=== PATIENT | female | born 1960 | race Caucasian/White ===

== ENCOUNTER 2017-01-18 16:24 | Day surgery (SDC) | payer OTHER ==
[~2017-01-18] VITALS: Ht 170.2 cm; Wt 110.5 kg
--- NOTE | 2017-01-18 19:50 | DIAGNOSTIC IMAGING REPORT ---
PROCEDURE: ABDOMEN/PELVIS WITH CONTRAST CLINICAL INDICATION: ABDOMINAL PAIN TECHNIQUE: 125 ml of Isovue 300 were injected intravenously and axial images were obtained of the abdomen and pelvis with sagittal and coronal reformations. COMPARISON: None. FINDINGS: ABDOMEN: Moderate posterior bibasilar and lingular atelectasis. Moderate diffuse hepatic hypodensity. Splenule caudal to the spleen. Surgical tacks of ventral abdominal hernia repair with mesh. Normal sized heart. No hiatal hernia. The gallbladder, adrenal glands, kidneys, pancreas and spleen are normal. The abdominal aorta is normal in its course and caliber. Trace atherosclerosis. There are no suspicious calcifications, retroperitoneal adenopathy or masses. The stomach, upper bowel loops, and mesentery are normal. PELVIS: 18 mm, fluid-filled appendix with mild periappendiceal inflammation and trace fluid. There is a calcified appendicolith at the orifice and another within the lumen. No evidence of perforation, drainable fluid collection, or significant free pelvic fluid. The pelvic small bowel loops are normal. Normal amount of stool in the colon and rectum. The uterus, ovaries, urinary bladder, and pelvic vessels are normal. No adenopathy, free fluid, or pelvic mass. Severe degenerative disc height loss at L4-5. Otherwise normal osseous structures. IMPRESSION: 1. Findings of acute, uncomplicated appendicitis. 2. Surgical changes of abdominal wall ventral hernia repair with mesh. 3. Moderate hepatic steatosis. 4. Discussed with Bridger in the emergency room. All CT scans at this facility use dose modulation, iterative reconstruction, and/or weight-based dosing when appropriate to reduce radiation dose to as low as reasonably achievable.
--- NOTE | 2017-01-18 19:50 | ED ORDER SUMMARY ---
..... Patient: MINNIE ROBERTS OrderSheet [facility] VisitID: [id number] [address] [place] [address] 56y, F Registration Date/Time: 01/18/2017 ORDER SHEET Weight: 109.3 kg (stated) Allergies: Morphine and Related GENERAL ORDERS: CBC w Diff Urgent (17:36 01/18/2017 EKoroleva P.A.-C) (Ack 17:39 KHoerner) (18:17 SBalde R.N.) CMP Urgent (17:36 01/18/2017 EKoroleva P.A.-C) (Ack 17:39 KHoerner) (18:17 SBalde R.N.) Lipase Urgent (17:36 01/18/2017 EKoroleva P.A.-C) (Ack 17:39 KHoerner) (18:17 SBalde R.N.) UA-Culture if indicated Urgent (17:36 01/18/2017 EKoroleva P.A.-C) (Ack 17:39 KHoerner) (19:07 SBalde R.N.) CT Abd/Pel w Cont (No) (N/A) Urgent (18:39 01/18/2017 EKoroleva P.A.-C) (Ack 18:40 KHoerner) (19:07 SBalde R.N.) MEDICATION ORDERS: IV FLUIDS: IV Saline Lock (17:36 01/18/2017 EKoroleva P.A.-C) (18:17 SBalde R.N.) Dilaudid IV 1 mg (NOW) (17:57 01/18/2017 EKoroleva P.A.-C) (18:17 SBalde R.N.) Dilaudid IV 1 mg (HIGH ALERT MEDICATION, NOW) (19:48 01/18/2017 EKoroleva P.A.-C) (Ack 19:48 RCollier R.N.) (19:53 RCollier R.N.) IV Lactated Ringers : initial bolus 12ml, then 125 mL/hr (NOW); Nir (19:59 01/18/2017 EKoroleva P.A.-C) (Ack 20:08 RCollier R.N.) (20:16 RCollier R.N.) Reglan IV 10 mg (NOW) (19:59 01/18/2017 EKoroleva P.A.-C) (20:07 RCollier R.N.) Famotidine IV 20 mg/50mL (NOW) (19:59 01/18/2017 EKoroleva P.A.-C) (20:08 RCollier R.N.) Cefotetan IV 2 gm (NOW) (19:59 01/18/2017 EKoroleva P.A.-C) (Ack 20:08 RCollier R.N.) (20:29 RCollier R.N.) Zofran IV 4 mg (NOW) (20:08 01/18/2017 RCollier R.N. written order Douglas SILVA) (20:10 RCollier R.N.) Acute Appendicitis orders ORDER SHEET NOTES: [Electronically signed by Ivonne Velasquez R.N. (21:10 01/18/2017)] [Electronically locked/signed by Ivonne Velasquez R.N. (21:10 01/18/2017)]
--- NOTE | 2017-01-18 19:50 | ED ORDER SUMMARY ---
..... Patient: MINNIE ROBERTS OrderSheet [facility] VisitID: [id number] [address] [place] [address] 56y, F Registration Date/Time: 01/18/2017 ORDER SHEET Weight: 109.3 kg (stated) Allergies: Morphine and Related GENERAL ORDERS: CBC w Diff Urgent (17:36 01/18/2017 EKoroleva P.A.-C) (Ack 17:39 KHoerner) (18:17 SBalde R.N.) CMP Urgent (17:36 01/18/2017 EKoroleva P.A.-C) (Ack 17:39 KHoerner) (18:17 SBalde R.N.) Lipase Urgent (17:36 01/18/2017 EKoroleva P.A.-C) (Ack 17:39 KHoerner) (18:17 SBalde R.N.) UA-Culture if indicated Urgent (17:36 01/18/2017 EKoroleva P.A.-C) (Ack 17:39 KHoerner) (19:07 SBalde R.N.) CT Abd/Pel w Cont (No) (N/A) Urgent (18:39 01/18/2017 EKoroleva P.A.-C) (Ack 18:40 KHoerner) (19:07 SBalde R.N.) MEDICATION ORDERS: IV FLUIDS: IV Saline Lock (17:36 01/18/2017 EKoroleva P.A.-C) (18:17 SBalde R.N.) Dilaudid IV 1 mg (NOW) (17:57 01/18/2017 EKoroleva P.A.-C) (18:17 SBalde R.N.) Dilaudid IV 1 mg (HIGH ALERT MEDICATION, NOW) (19:48 01/18/2017 EKoroleva P.A.-C) (Ack 19:48 RCollier R.N.) (19:53 RCollier R.N.) IV Lactated Ringers : initial bolus 12ml, then 125 mL/hr (NOW); Nir (19:59 01/18/2017 EKoroleva P.A.-C) (Ack 20:08 RCollier R.N.) (20:16 RCollier R.N.) Reglan IV 10 mg (NOW) (19:59 01/18/2017 EKoroleva P.A.-C) (20:07 RCollier R.N.) Famotidine IV 20 mg/50mL (NOW) (19:59 01/18/2017 EKoroleva P.A.-C) (20:08 RCollier R.N.) Cefotetan IV 2 gm (NOW) (19:59 01/18/2017 EKoroleva P.A.-C) (Ack 20:08 RCollier R.N.) (20:29 RCollier R.N.) Zofran IV 4 mg (NOW) (20:08 01/18/2017 RCollier R.N. written order Douglas SILVA) (20:10 RCollier R.N.) Acute Appendicitis orders ORDER SHEET NOTES: [Electronically signed by Ivonne Velasquez R.N. (21:10 01/18/2017)] [Electronically locked/signed by Ivonne Velasquez R.N. (21:10 01/18/2017)]
--- NOTE | 2017-01-18 19:50 | ED NURSING NOTES ---
Clinical Report - [facility] [address] [place] [address] 01/18/2017 16:25 Patient: MINNIE ROBERTS TRIAGE Triage time 17:Jan 18 2017. Acuity: LEVEL 3. Chief Complaint: ABDOMINAL PAIN. Alert. No acute distress. --17:30 Trang Walker R.N. 17:22 01/18/17. BP: 132/85. HR: 93. RR: 18. O2 saturation: 98%. Temp: 97.7 F. Pain level now 02/26. --17:30 Trang Walker R.N. Weight: 109.3 kg stated. Height/Length: 67 inches Per Patient. BMI: 37.8. --17:21 Trang Walker R.N. Medications Zoloft Oral 54mg, daily. --17:26 Trang Walker R.N. Gabapentin Oral 300mg, at bedtime. Nortriptyline HCl Oral (2 tabs). Tradjenta Oral (Tablet 5 mg) 1 tablet, daily. --17:26 Trang Walker R.N. Flexeril 10mg, as needed. --17:27 Trang Walker R.N. Glucosamine Complex Oral 4mg. --19:27 Trang Walker R.N. Pioglitazone HCl Oral 30 mg. --19:28 Trang Walker R.N. Hydrochlorothiazide Oral 25 mg, daily. --19:29 Trang Walker R.N. Lisinopril Oral 20 mg, 2x a day. --19:29 Trang Walker R.N. Lantus Subcutaneous 30 units, every PM. --19:31 Trang Walker R.N. Omeprazole Oral 40 mg. --19:31 Trang Walker R.N. Simvastatin Oral 20 mg. --19:32 Trang Walker R.N. The following entry was struck by Trang Walker R.N., 19:31 (01/18/17) Reason - other. <<STRICKEN ENTRY-- Insulin 30 units , at bedtime (Lantus). --17:26 Trang Walker R.N. --END STRIKE>> The following entry was struck by Trang Walker R.N., 19:31 (01/18/17) Reason - other. <<STRICKEN ENTRY-- CHOLESTEROL MED. --17:26 Trang Walker R.N. --END STRIKE>> The following entry was struck by Trang Walker R.N., 19:29 (01/18/17) Reason - other. <<STRICKEN ENTRY-- Blood Pressure Pill. --17:26 Trang Walker R.N. --END STRIKE>> The following entry was struck and corrected by Trang Walker R.N., 19:27 (01/18/17) Reason for correction - other(correction). <<STRICKEN ENTRY-- Flexeril, as needed. --17:27 Trang Walker R.N. --END STRIKE>> The following entry was struck and corrected by Trang Walker R.N., 19:27 (01/18/17) Reason for correction - other(correction). <<STRICKEN ENTRY-- Zoloft Oral. --17:26 Trang Walker R.N. --END STRIKE>>. Medication/allergy information source: the patient. --17:30 Trang Walker R.N. Allergies Morphine and Related. (Facial Itching) --17:26 Trang Walker R.N. History Arrived by private vehicle. Historian: patient. Accompanied by family. Primary physician ([facility]). ( RLQ pain since yesterday, sudden onset, was sitting around the house, at rest. Last normal BM was yesterday. 7/10 pain. No OTC meds.). This started yesterday. 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 PAST MEDICAL HX: Immunizations: up-to-date and has received pneumonia vaccine; seasonal influenza. The patient is post-menopausal. SOCIAL HX: Former smoker. No alcohol use or drug use. No recent travel. No known contact with a sick individual. FALL RISK ASSESSMENT: Fall risk assessment completed. No fall risk identified. NUTRITIONAL RISK ASSESSMENT: The nutritional risk assessment revealed no deficiencies. FUNCTIONAL ASSESSMENT: Functional assessment: no impairments noted. LEARNING NEEDS ASSESSMENT: The learning needs assessment revealed no barriers. SKIN INTEGRITY ASSESSMENT: Skin integrity risk assessment completed. No skin integrity risk identified. --17:30 Trang Walker R.N. PROBLEMS: Contusion. Sprain. Fall. Fibromyalgia. Costochondritis. UTI - Urinary Tract Infection. Diabetes Mellitus. Lung Disease. LNMP - Last Normal Menstrual Period. Immunizations. --17:29 Trang Walker R.N. ADDITIONAL SURGERIES: . Inguinal Hernia Repair. Umbilical Hernia Repair. --17:29 Trang Walker R.N. Interventions ID band on patient. To room. --17:30 Trang Walker R.N. NURSING PROGRESS NOTES Patient ready for evaluation- ED physician notified. --17:30 Trang Walker R.N. 18:17 01/18/2017 Site #1 started via IV in the right antecubital space with an 20g angiocath; one attempt. Blood drawn: rainbow set. Labeled in the presence of the patient and sent to the lab. Saline lock flushed with 10 mL saline. --18:17 Trang Walker R.N. 18:17 01/18/2017 Dilaudid (HYDROmorphone HCl PF) IVP 1 mg given over 2 minute(s) via site #1. Sedative warning given to the patient. IV patency established. IV site checked: no pain, redness, or swelling. IV flushed thoroughly pre- and post-medication administration. IVP given by RN. --18:17 Trang Walker R.N. Patient transported to [place] by stretcher with tech. --19:06 Trang Walker R.N. Care transferred and report received. --19:10 Ivonne Velasquez R.N. Patient returned from [place] by stretcher with tech. --19:19 Trang Walker R.N. 19:25 01/18/17. BP: 130/68. HR: 100. RR: 18. O2 saturation: 96%. Pain level now 10/27. --19:25 Trang Walker R.N. The patient reports no complaints and she has had no adverse reaction. Overall patient status is improved- she states feels better. --19:25 Trang Walker R.N. ( Called [facility] for med list, closed. Pt does use [facility], but has been months. Sister called family finally and was able to talk to family for meds.). --19:26 Trang Walker R.N. Care transferred and report given (Ivonne, VALENTIN). --19:32 Trang Walker R.N. Patient waiting for CT results. --19:33 Trang Walker R.N. GI / : The patient reports abdominal pain located in the RLQ is still present and currently moderate in severity (12/27). --19:48 Ivonne Velasquez R.N. 19:53 01/18/2017 Dilaudid (HYDROmorphone HCl PF) IVP 1 mg given over 30 second(s) via site #1. Allergies verified, confirmed 5 rights and sedative warning given to the patient. IV patency established. IV site checked: no pain, redness, or swelling. IV flushed thoroughly pre- and post-medication administration. IVP given by RN. --19:53 Ivonne Velasquez R.N. 20:04 01/18/2017 Zofran (Ondansetron HCl) IVP 4 mg given over 1 minute(s) via site #1. Allergies verified and confirmed 5 rights. IV patency established. IV site checked: no pain, redness, or swelling. IV flushed thoroughly pre- and post-medication administration. IVP given by RN. --20:10 Ivonne Velasquez R.N. 20:05 01/18/2017 Reglan (Metoclopramide HCl) IVP 10 mg given over 2 minute(s) via site #1. Allergies verified and confirmed 5 rights. IV patency established. IV site checked: no pain, redness, or swelling. IV flushed thoroughly pre- and post-medication administration. IVP given by RN. --20:07 Ivonne Velasquez R.N. 20:08 01/18/2017 Started 20 mg of Famotidine IVPB in bag #1 50 mL; at 150 mL/hr over 20 minute(s) via site #1 via IV pump. Allergies verified and confirmed 5 rights. IV patency established. IV site checked: no pain, redness, or swelling. IV flushed thoroughly pre- and post-medication administration. --20:08 Ivonne Velasquez R.N. 20:16 01/18/2017 Started bag #1 1000 mL IV Fluids IV LACTATED RINGERS; at 125 mL/hr via site #1 via IV pump. Allergies verified and confirmed 5 rights. IV patency established. IV site checked: no pain, redness, or swelling. IV flushed thoroughly pre- and post-medication administration. --20:16 Ivonne Velasquez R.N. 20:27 01/18/2017 Famotidine IVPB Discontinued: bag #1 completed. Total amount infused: 50 mL. IV patency established. IV site checked: no pain, redness, or swelling. IV flushed thoroughly. --20:28 Ivonne Velasquez R.N. 20:28 01/18/2017 Started 1 gm of CEFOTETAN IVPB in bag #1 50 mL; at 180 mL/hr over 20 minute(s) via site #1 via IV pump. Allergies verified and confirmed 5 rights. IV patency established. IV site checked: no pain, redness, or swelling. IV flushed thoroughly pre- and post-medication administration (due to availability of medication, only 1gm to infuse at a time.). --20:29 Ivonne Velasquez R.N. 20:47 01/18/2017 CEFOTETAN IVPB Discontinued: bag #1 completed. Total amount infused: 50 mL. IV patency established. IV site checked: no pain, redness, or swelling. IV flushed thoroughly. --20:47 Ivonne Velasquez R.N. 20:48 01/18/2017 Started 1 gm of CEFOTETAN IVPB in bag #2 50 mL; at 180 mL/hr over 20 minute(s) via site #1 via IV pump. Allergies verified and confirmed 5 rights. IV patency established. IV site checked: no pain, redness, or swelling. IV flushed thoroughly pre- and post-medication administration (bag #2 of total infusion (2gms ordered)). --20:48 Ivonne Velasquez R.N. 20:46. Point of care testing: performed by nurse. Glucose: 154. --20:49 Ivonne Velasquez R.N. 20:49 01/18/17. BP: 98/44. HR: 96. RR: 16. O2 saturation: 96%. Pardo-Bishop pain scale: 4/10. --20:49 Ivonne Velasquez R.N. The patient is calm and resting quietly. ( lights dimmed for pt comfort.). --20:49 Ivonne Velasquez R.N. DISPOSITION / DISCHARGE 21:01/18/17. BP: unable to obtain due to patient not present. HR: unable to obtain due to patient not present. RR: unable to obtain due to patient not present. O2 saturation: unable to obtain due to patient not present. Temp: unable to obtain due to patient not present. Pain level now unable to obtain due to patient not present. --21:08 Ivonne Velasquez R.N. Admitted to Acute Care via Surgery. Transported via stretcher by nurse with IV. ( Surgical team took pt prior to discharge vitals). Patient's personal items include: shirt, pants, undergarments, socks, shoes and purse; items were placed in belongings bag and transported with the patient. Collection of belongings was witnessed by 1 nurse. --21:08 Ivonne Velasquez R.N. 21:01/18/2017 Site #[address] upon admission; patent. --21:08 Ivonne Velasquez R.N. 21:01/18/2017 CEFOTETAN IVPB Discontinued: bag #2 completed. Total amount infused: 50 mL. IV patency established. IV site checked: no pain, redness, or swelling. IV flushed thoroughly. --21:08 Ivonne Velasquez R.N. 21:01/18/2017 IV Fluids IV LACTATED RINGERS Continued: at the rate of 125 mL/hr. 900 mL remaining bag #1. IV patency established. IV site checked: no pain, redness, or swelling. IV flushed thoroughly. --21:09 Ivonne Velasquez R.N. Locked/Released at 01/18/2017 21:10 by Ivonne Velasquez R.N.
--- NOTE | 2017-01-18 19:50 | ED CLINICAL REPORT ---
Clinical Report - Physicians/Mid Levels [facility] [address] [place] [address] 01/18/2017 16:25 Patient: MINNIE ROBERTS Time Seen: 17:43 Kwame 2016. Arrived- By private vehicle. HISTORY OF PRESENT ILLNESS Chief Complaint: ABDOMINAL PAIN. It is described as located in the right lower quadrant. This started yesterday and is still present. (patient with right lower quadrant pain since yesterday morning, was associated nausea, decreased appetite. Patient denies any diarrhea or loose stools. Took a stool softener, she thought constipation may be an issue. Denies sick contacts. He denies any shortness of breath. Denies any recent antibiotic use.). REVIEW OF SYSTEMS No constipation, black stools, chest pain or difficulty breathing. All systems otherwise negative, except as recorded above. PAST HISTORY Problems: Hypertension. Contusion. Sprain. Fall. Fibromyalgia. Costochondritis. UTI - Urinary Tract Infection. Diabetes Mellitus. Lung Disease. LNMP - Last Normal Menstrual Period. Immunizations. Additional Surgeries: . Inguinal Hernia Repair. Umbilical Hernia Repair. Medications: Simvastatin Oral 20 mg. Omeprazole Oral 40 mg. Lantus Subcutaneous 30 units, every PM. Lisinopril Oral 20 mg, 2x a day. Hydrochlorothiazide Oral 25 mg, daily. Pioglitazone HCl Oral 30 mg. Glucosamine Complex Oral 4mg. Flexeril 10mg, as needed. Gabapentin Oral 300mg, at bedtime. Nortriptyline HCl Oral (2 tabs). Tradjenta Oral (Tablet 5 mg) 1 tablet, daily. Zoloft Oral 54mg, daily. Allergies: Morphine and Related. (Facial Itching). SOCIAL HISTORY Former smoker. No alcohol use or drug use. ADDITIONAL NOTES The nursing notes have been reviewed. PHYSICAL EXAM Vital Signs: 01/18/2017 17:22 BP: 132/85. HR: 93. RR: 18. O2 saturation: 98%. Temp: 97.7 F. Appearance: Alert. No acute distress. ENT: Ears normal. Neck: Normal inspection. CVS: Normal heart rate and rhythm. Heart sounds normal. Respiratory: No respiratory distress. Breath sounds normal. Abdomen: Tenderness in the right lower quadrant. Guarding present. Rebound tenderness. Neuro: Oriented X 3. LABS, X-RAYS, AND EKG Abdominal CT: IMPRESSION: 1. Findings of acute, uncomplicated appendicitis. 2. Surgical changes of abdominal wall ventral hernia repair with mesh. 3. Moderate hepatic steatosis. 4. Discussed with Bridger in the emergency room. All CT scans at this facility use dose modulation, iterative reconstruction, and/or weight-based dosing when appropriate to reduce radiation dose to as low as reasonably achievable. Electronically Final signed by:Sadia Roy MD 01/18/2017 7:49:15 PM. Laboratory Tests: UA-Culture if indicated: (GIULIANA: 01/18/2017 18:40) ( MsgRcvd 01/18/2017 18:54) Final results Test Result Flag Units (Reference) URINE COLOR YELLOW URINE APPEARANCE CLEAR URINE GLUCOSE 2+ (NEGATIVE) URINE BILIRUBIN NEGATIVE (NEGATIVE) URINE KETONE NEGATIVE (NEGATIVE) URINE SPECIFIC GRAVITY 1.015 (1.010-1.030) URINE PH 6.0 (5.0-8.0) URINE PROTEIN NEGATIVE (NEGATIVE) URINE UROBILINOGEN 0.2 EU/dL (0.2-1.0) URINE NITRITE NEGATIVE (NEGATIVE) URINE BLOOD NEGATIVE (NEGATIVE) URINE LEUK ESTERASE NEGATIVE (NEGATIVE) URINE RBC NONE SEEN rbc/hpf (0-1) URINE WBC 1-3 wbc/hpf (0-1) URINE EPITHELIAL CELLS 1-3 EPI/hpf (0-5) URINE BACTERIA TRACE (<1+) (NONE SEEN) URINE COMMENT CULT NOT INDICATED URINE CULTURES ARE SET-UP BASED ON THE FOLLOWING CRITERIA:POSITIVE NITRITEPOSITIVE LEUKOCYTE ESTERASEGREATER THAN 10 WHITE BLOOD CELLSMODERATE (2+) OR GREATER BACTERIA CBC w Diff: (GIULIANA: 01/18/2017 18:20) ( MsgRcvd 01/18/2017 18:31) Final results Test Result Flag Units (Reference) WHITE BLOOD COUNT 16.0 H K/uL (4.5-11.5) RED BLOOD COUNT 4.72 M/uL (4.00-5.20) HEMOGLOBIN 14.1 gm/dL (12.0-16.0) HEMATOCRIT 41.4 % (36.0-46.0) MEAN CELL VOLUME 88 fL (80-100) MEAN CORPUSCULAR HGB 30 pg (26-34) MEAN CORPUSCULAR HGB CONC 34 g/dL (31-37) RED CELL DISTRIBUTION WIDTH 13.8 % (11.6-14.8) PLATELET COUNT 311 K/uL (150-400) NEUTROPHIL % 62.3 % (50-75) LYMPH % 32.0 % (25-40) MONO % 3.6 % (3-14) EOSINOPHIL % 1.3 % (0-4) BASOPHIL % 0.8 % (0-2) CMP: (GIULIANA: 01/18/2017 18:20) ( MsgRcvd 01/18/2017 18:52) Final results Test Result Flag Units (Reference) GLUCOSE 181 H mg/dL (70-110) BUN 9 mg/dL (7-18) CREATININE 0.7 mg/dL (0.6-1.3) Estimated GFR >60 mL/min Estimated GFR- >60 mL/min Note: Persistent reduction over 3 months in eGFR<60 mL/min/1.73 m2 defines CKD. Patients with eGFR values>=60 mL/min/1.73 m2 may also have CKD if evidence ofpersistent proteinuria. Additional information may be foundat www.kidney.org. SODIUM 140 mmol/L (136-145) POTASSIUM 3.6 mmol/L (3.5-5.1) CHLORIDE 99 mmol/L (98-107) CARBON DIOXIDE 32 mmol/L (21-32) CALCIUM 9.4 mg/dL (8.5-10.1) TOTAL PROTEIN 7.6 g/dL (6.4-8.2) ALBUMIN 4.0 g/dL (3.3-5.0) BILIRUBIN, TOTAL 0.4 mg/dL (0.0-1.0) ALKALINE PHOSPHATASE 84 U/L (46-116) AST (SGOT) 21 U/L (15-37) ALT (SGPT) 37 U/L (12-78) LIPASE 92 U/L (73-393) . PROGRESS AND PROCEDURES Course of Care: Patient with right-sided abdominal pain, in the setting of diabetes, insulin-dependent, with leukocytosis. CT was ordered with contrast. Patient with signs of acute appendicitis, uncomplicated. Case discussed with surgeon, Dr. Michael, who will see the patient in emergency department, likely for OR time within the next hour. Requests antibiotics. Case discussed with Dr. Miller, hospitalist, who accepts for consultation. Secondary to requirements per registration patient being placed in a operating bed, unable to complete any transition orders, will admission package place. 01/18/2017 20:49 BP: 98/44. HR: 96. RR: 16. O2 saturation: 96%. Pardo-Bishop pain scale: 4/10. 01/18/2017 19:25 BP: 130/68. HR: 100. RR: 18. O2 saturation: 96%. Symptoms better. Patient/family counseled. Disposition: Admitted via Surgery. CLINICAL IMPRESSION Chronic type 2 diabetes. No hyperglycemia. Acute Appendicitis. (Electronically signed by Cat Sparks P.A.-C 01/18/2017 21:17)
--- NOTE | 2017-01-18 21:18 | ED DISCHARGE INSTRUCTIONS ---
Patient: MINNIE ROBERTS General Instructions [facility] VisitID: [id number] [address] [place] [address] 56y, F Registration Date/Time: 01/18/2017 Chronic type 2 diabetes. No hyperglycemia. Acute Appendicitis. (Electronically signed by Cat Sparks P.A.-C 01/18/2017 21:17)
--- NOTE | 2017-01-18 21:18 | ED MAR SUMMARY ---
..... Medication Administration Record [facility] [address] [place] [address] Patient: MINNIE ROBERTS Visit ID: [id number] 56y, F Weight: 109.3 kg Height/Length: 67 in BMI: 37.8 ALLERGIES: Morphine and Related Given 18:17 01/18/2017 Trang Walker R.N. Medication Administered: DILAUDID [IVP] (HYDROMORPHONE HCL PF), Dose: 1 mg IVP over 2 minute(s), Site: #1 right AC. Medication Ordered: Dilaudid IV 1 mg (NOW). Given 19:53 01/18/2017 Ivonne Velasquez R.N. Medication Administered: DILAUDID [IVP] (HYDROMORPHONE HCL PF), Dose: 1 mg IVP over 30 second(s), Site: #1 right AC. Medication Ordered: Dilaudid IV 1 mg (HIGH ALERT MEDICATION, NOW). Given 20:04 01/18/2017 Ivonne Velasquez R.N. Medication Administered: ZOFRAN [IVP] (ONDANSETRON HCL), Dose: 4 mg IVP over 1 minute(s), Site: #1 right AC. Medication Ordered: Zofran IV 4 mg (NOW). Given 20:05 01/18/2017 Ivonne Velasquez R.N. Medication Administered: REGLAN [IVP] (METOCLOPRAMIDE HCL), Dose: 10 mg IVP over 2 minute(s), Site: #1 right AC. Medication Ordered: Reglan IV 10 mg (NOW). Start 20:08 01/18/2017 Ivonne Velasquez R.N., Stop 20:27 01/18/2017 Ivonne Velasquez R.N. Medication Administered: FAMOTIDINE [IVPB], Dose: 20 mg IVPB over 20 minute(s), Rate: 150 mL/hr, Dispensed: 50 mL bag, Site: #1 right AC. Medication Ordered: Famotidine IV 20 mg/50mL (NOW). Start 20:16 01/18/2017 Ivonne Velasquez R.N., Continued Upon Disposition 21:08 01/18/2017 Ivonne Velasquez R.N. Medication Administered: IV LACTATED RINGERS, Dose: IV Fluids, Rate: 125 mL/hr, Dispensed: 1000 mL bag, Site: #1 right AC. Medication Ordered: IV Lactated Ringers : initial bolus 12ml, then 125 mL/hr (NOW); Nir. Start 20:28 01/18/2017 Ivonne Velasquez R.N., Stop 20:47 01/18/2017 Ivonne Velasquez R.N. Medication Administered: CEFOTETAN [IVPB], Dose: 1 gm IVPB over 20 minute(s), Rate: 180 mL/hr, Dispensed: 50 mL bag, Site: #1 right AC. Medication Ordered: Cefotetan IV 2 gm (NOW). Start 20:48 01/18/2017 Ivonne Velasquez R.N., Stop 21:08 01/18/2017 Ivonne Velasquez R.N. Medication Administered: CEFOTETAN [IVPB], Dose: 1 gm IVPB over 20 minute(s), Rate: 180 mL/hr, Dispensed: 50 mL bag, Site: #1 right AC. Medication Ordered: Cefotetan IV 2 gm (NOW).
--- NOTE | 2017-01-18 21:18 | ED DISCHARGE INSTRUCTIONS ---
Patient: MINNIE ROBERTS General Instructions [facility] VisitID: [id number] [address] [place] [address] 56y, F Registration Date/Time: 01/18/2017 Chronic type 2 diabetes. No hyperglycemia. Acute Appendicitis. (Electronically signed by Cat Sparks P.A.-C 01/18/2017 21:17)
--- NOTE | 2017-01-18 21:18 | ED MED RECONCILIATION SUMMARY ---
Patient: MINNIE ROBERTS Medication Reconciliation Report [facility] VisitID: [id number] [address] [place] [address] 56y, F Registration Date/Time: 01/18/2017 Weight: 109.3 kg Height/Length: 67 in. BMI: 37.8 ALLERGIES: Morphine and Related The patient's Home Medications are listed below: THE FOLLOWING MEDICATIONS NEED TO BE RECONCILED: Flexeril 10mg Gabapentin Oral 300mg, at bedtime Glucosamine Complex Oral 4mg Hydrochlorothiazide Oral 25 mg, daily Lantus Subcutaneous 30 units, every PM Lisinopril Oral 20 mg, 2x a day Nortriptyline HCl Oral, 2 tabs Omeprazole Oral 40 mg Pioglitazone HCl Oral 30 mg Simvastatin Oral 20 mg Tradjenta Oral (5 mg) 1 tablet, daily Zoloft Oral 54mg, daily The source(s) of the original Home Medication information: patient The following Medications were given to the patient in the Emergency Department: Dilaudid [IVP] IVP 1 mg, administered: 01/18/2017 6:17:00 PM Dilaudid [IVP] IVP 1 mg, administered: 01/18/2017 7:53:00 PM Reglan [IVP] IVP 10 mg, administered: 01/18/2017 8:05:00 PM Famotidine [IVPB] IVPB bolus 0, then 20 mg 150 mL/hr, administered: 01/18/2017 8:08:00 PM Zofran [IVP] IVP 4 mg, administered: 01/18/2017 8:04:00 PM IV LACTATED RINGERS IV Fluids bolus 0, then 125 mL/hr, administered: 01/18/2017 8:16:00 PM CEFOTETAN [IVPB] IVPB bolus 0, then 1 gm 180 mL/hr, administered: 01/18/2017 8:28:00 PM CEFOTETAN [IVPB] IVPB bolus 0, then 1 gm 180 mL/hr, administered: 01/18/2017 8:48:00 PM The following Medications were prescribed to the patient: None.
--- NOTE | 2017-01-18 21:18 | ED MAR SUMMARY ---
..... Medication Administration Record [facility] [address] [place] [address] Patient: MINNIE ROBERTS Visit ID: [id number] 56y, F Weight: 109.3 kg Height/Length: 67 in BMI: 37.8 ALLERGIES: Morphine and Related Given 18:17 01/18/2017 Trang Walker R.N. Medication Administered: DILAUDID [IVP] (HYDROMORPHONE HCL PF), Dose: 1 mg IVP over 2 minute(s), Site: #1 right AC. Medication Ordered: Dilaudid IV 1 mg (NOW). Given 19:53 01/18/2017 Ivonne Velasquez R.N. Medication Administered: DILAUDID [IVP] (HYDROMORPHONE HCL PF), Dose: 1 mg IVP over 30 second(s), Site: #1 right AC. Medication Ordered: Dilaudid IV 1 mg (HIGH ALERT MEDICATION, NOW). Given 20:04 01/18/2017 Ivonne Velasquez R.N. Medication Administered: ZOFRAN [IVP] (ONDANSETRON HCL), Dose: 4 mg IVP over 1 minute(s), Site: #1 right AC. Medication Ordered: Zofran IV 4 mg (NOW). Given 20:05 01/18/2017 Ivonne Velasquez R.N. Medication Administered: REGLAN [IVP] (METOCLOPRAMIDE HCL), Dose: 10 mg IVP over 2 minute(s), Site: #1 right AC. Medication Ordered: Reglan IV 10 mg (NOW). Start 20:08 01/18/2017 Ivonne Velasquez R.N., Stop 20:27 01/18/2017 Ivonne Velasquez R.N. Medication Administered: FAMOTIDINE [IVPB], Dose: 20 mg IVPB over 20 minute(s), Rate: 150 mL/hr, Dispensed: 50 mL bag, Site: #1 right AC. Medication Ordered: Famotidine IV 20 mg/50mL (NOW). Start 20:16 01/18/2017 Ivonne Velasquez R.N., Continued Upon Disposition 21:08 01/18/2017 Ivonne Velasquez R.N. Medication Administered: IV LACTATED RINGERS, Dose: IV Fluids, Rate: 125 mL/hr, Dispensed: 1000 mL bag, Site: #1 right AC. Medication Ordered: IV Lactated Ringers : initial bolus 12ml, then 125 mL/hr (NOW); Nir. Start 20:28 01/18/2017 Ivonne Velasquez R.N., Stop 20:47 01/18/2017 Ivonne Velasquez R.N. Medication Administered: CEFOTETAN [IVPB], Dose: 1 gm IVPB over 20 minute(s), Rate: 180 mL/hr, Dispensed: 50 mL bag, Site: #1 right AC. Medication Ordered: Cefotetan IV 2 gm (NOW). Start 20:48 01/18/2017 Ivonne Velasquez R.N., Stop 21:08 01/18/2017 Ivonne Velasquez R.N. Medication Administered: CEFOTETAN [IVPB], Dose: 1 gm IVPB over 20 minute(s), Rate: 180 mL/hr, Dispensed: 50 mL bag, Site: #1 right AC. Medication Ordered: Cefotetan IV 2 gm (NOW).
--- NOTE | 2017-01-18 21:18 | ED MED RECONCILIATION SUMMARY ---
Patient: MINNIE ROBERTS Medication Reconciliation Report [facility] VisitID: [id number] [address] [place] [address] 56y, F Registration Date/Time: 01/18/2017 Weight: 109.3 kg Height/Length: 67 in. BMI: 37.8 ALLERGIES: Morphine and Related The patient's Home Medications are listed below: THE FOLLOWING MEDICATIONS NEED TO BE RECONCILED: Flexeril 10mg Gabapentin Oral 300mg, at bedtime Glucosamine Complex Oral 4mg Hydrochlorothiazide Oral 25 mg, daily Lantus Subcutaneous 30 units, every PM Lisinopril Oral 20 mg, 2x a day Nortriptyline HCl Oral, 2 tabs Omeprazole Oral 40 mg Pioglitazone HCl Oral 30 mg Simvastatin Oral 20 mg Tradjenta Oral (5 mg) 1 tablet, daily Zoloft Oral 54mg, daily The source(s) of the original Home Medication information: patient The following Medications were given to the patient in the Emergency Department: Dilaudid [IVP] IVP 1 mg, administered: 01/18/2017 6:17:00 PM Dilaudid [IVP] IVP 1 mg, administered: 01/18/2017 7:53:00 PM Reglan [IVP] IVP 10 mg, administered: 01/18/2017 8:05:00 PM Famotidine [IVPB] IVPB bolus 0, then 20 mg 150 mL/hr, administered: 01/18/2017 8:08:00 PM Zofran [IVP] IVP 4 mg, administered: 01/18/2017 8:04:00 PM IV LACTATED RINGERS IV Fluids bolus 0, then 125 mL/hr, administered: 01/18/2017 8:16:00 PM CEFOTETAN [IVPB] IVPB bolus 0, then 1 gm 180 mL/hr, administered: 01/18/2017 8:28:00 PM CEFOTETAN [IVPB] IVPB bolus 0, then 1 gm 180 mL/hr, administered: 01/18/2017 8:48:00 PM The following Medications were prescribed to the patient: None.
[2017-01-18] MEDS ORDERED: NORCO1 TA1 PO (22:17)
--- NOTE | 2017-01-18 22:18 | Provider's Discharge Care Plan ---
Problem, Goal, Plan Problem List 1. Acute appendicitis
--- NOTE | 2017-01-18 22:18 | Provider's Discharge Care Plan ---
Problem, Goal, Plan Problem List 1. Acute appendicitis
--- NOTE | 2017-01-18 22:22 | CONSULTATION REPORT ---
DATE OF CONSULTATION: 01/18/2017 CHIEF COMPLAINT: 1. Abdominal pain HISTORY OF PRESENT ILLNESS: The patient is a 56-year-old woman who started having abdominal pain in the right lower quadrant yesterday evening. The pain became progressively worse causing patient to present to the hospital. The patient reported no appetite today and she did not eat anything and was nauseated. She reports no vomiting or diarrhea. MEDICAL/SURGICAL HISTORY: Past medical history: Diabetes, fibromyalgia, hypertension, lung disease, urinary tract infections. Past surgery: , inguinal and umbilical hernia repair. The umbilical hernia repair appears to be a laparoscopic ventral hernia repair with the use of mesh covering this area. The patient reports that mesh was used. MEDICATIONS: 1. Flexeril 10 mg daily. 2. Gabapentin 300 mg at bedtime. 3. Glucosamine complex 4 mg daily. 4. HCTZ 25 mg daily. 5. Lantus subcutaneous 30 units q.p.m. 6. Lisinopril 20 units b.i.d. 7. Nortriptyline dose unknown, oral. 8. Omeprazole 40 mg daily. 9. Pioglitazone 30 mg daily. 10. Simvastatin 20 mg daily. 11. Tradjenta 5 mg daily. 12. Zoloft 50 mg daily. ALLERGIES: 1. MORPHINE CAUSING FACIAL ITCHING AND SWELLING. 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 She does not currently work. She is . She does not smoke cigarettes or take alcohol. FAMILY HISTORY: Diabetes in a sister and mother; both had cervical cancer. REVIEW OF SYSTEMS: A multipoint review of systems was obtained by direct questioning and the patient reported no other symptoms other than those in the HPI. She reports no productive cough, acute shortness of breath, hemoptysis, hematemesis, hematochezia, diarrhea. She reports no sinus conditions, eyesight or hearing problems, palpitations or chest pain, motor or sensory losses. PHYSICAL EXAMINATION: VITAL SIGNS: The patient's last vital signs: Blood pressure 98/44, heart rate of 96, respirations 16, O2 saturation 96%. Her initial temperature was 97.7. GENERAL: The patient is significantly height-weight disproportionate with mostly central obesity. HEENT: Ears and nose without gross external lesions. Eyes are equal. She is anicteric. NECK: Without palpable masses or thyromegaly. There are no bruits. CHEST: Clear to auscultation without rales. HEART: Regular, without murmur or gallop. ABDOMEN: Reveals localized tenderness in the right lower quadrant. She has a large overhanging pannus. There are small scars arranged around her umbilicus between 4 and 8 cm away, suggesting transfascial suturing. There are also laparoscopic trocar sites off to the right side of the abdomen. LAB/IMAGING: Lab tests show an elevated white count of 16,000, hemoglobin and hematocrit are 14 and 41. Chemistries show normal electrolytes. Her glucose is elevated at 181. Her liver enzymes are all normal. Her abdominal, pelvic CT showed an 18 mm fluid-filled appendix with a calcified fecalith. There is moderate hepatic steatosis. There are surgical changes in the ventral abdominal wall with mesh present. IMPRESSION: 1. Acute appendicitis. 2. Prior ventral hernia mesh repair. PLAN: I have recommended the patient undergo a laparoscopic appendectomy. I reported to her the nature of this operation, as well as alternatives, benefits and risks such as antibiotic therapy and open appendectomy. I described that we will do a modified approach to avoid the midline on our initial trocar site, probably in the right subcostal region until we can visualize this area. She is aware that risk of injury to the bowel is higher in the setting of surgical adhesions, which are likely to be present. The patient would like to proceed with surgery as described to her.
--- NOTE | 2017-01-18 22:58 | OPERATIVE REPORT ---
DATE OF SURGERY: 01/18/2017 SURGEON: Jhon Ambrosio MD PREOPERATIVE DIAGNOSIS: 1. Acute appendicitis POSTOPERATIVE DIAGNOSIS: 1. Acute suppurative appendicitis PROCEDURE PERFORMED: 1. Laparoscopic appendectomy ANESTHESIA: General. INDICATIONS: The patient is a 56-year-old woman with diabetes, presenting with 1 -day history of increasing abdominal pain. The patient had a previous mid abdominal mesh hernia repair. SURGICAL TECHNIQUE: The patient was taken to the operating room, where a general anesthetic was administered. The patient was given IV antibiotics and a sterile prep and drape. A local anesthetic of 0.5% Marcaine with epinephrine was used at each incision site, starting with a right subcostal puncture. A Veress needle was inserted through here and used to insufflate the abdomen. A 5 mm port was placed. Visualization obtained with the 5 mm laparoscope. This demonstrated omental adhesions to the mid portion of the abdomen completely covering the mesh, but no bowel stuck in this area. It was possible under direct vision to place 3 additional trocars in their usual locations, staying to the right of the mesh and avoiding the omentum. The patient was tilted to the left and in Trendelenburg. The appendix was found to be grossly distended and suppurative. The mesoappendix was taken down using the Thunderbeat device. The appendix itself was distended. There was some purulence in the mesentery near the base, but no yonis spillage. The base of the appendix was doubly clipped with large Hem-o-Morro clips. The specimen side was clipped and the appendix partially transected. Bipolar current was applied to the mucosa and the appendix was then fully transected and extracted by pulling it all the way up into a 10 mm cannula and removing it from the abdomen. Irrigation with local anesthetic was done and the area was cleansed. There was no bleeding. Gas was evacuated and the 10 mm port sites closed with interrupted subcuticular 4-0 Vicryl suture. Steri-Strips and dressings were placed at all sites. The patient left in stable condition.
[2017-01-18 23:49] VITALS: BP 138/77
[2017-01-19 00:05] VITALS: BP 126/66
[2017-01-19 00:15] VITALS: BP 109/76
[2017-01-19 00:32] VITALS: BP 130/70
[2017-01-19 01:30] VITALS: BP 130/84
[2017-01-19 06:16] VITALS: BP 137/70
== END 2017-01-19 06:31 | disposition home or self-care (01) ==
LOC: ED SRH 16:24 → SDP SRH 20:03 → SDC SRH 20:03 → SDP SRH 23:23 → ACUTE2 SRH 23:23 → SDC SRH 01-19 06:31 → SDP SRH 01-19 06:31 → ACUTE2 SRH 01-19 06:31
PROVIDERS: Surgery
PROC: 0DTJ4ZZ Resection of Appendix, Percutaneous Endoscopic Approach (ICD-10-PCS; principal; 2017-01-18 21:15)
DX: K35.89 Other acute appendicitis (principal); K38.1 Appendicular concretions; E11.9 Type 2 diabetes mellitus without complications; Z79.4 Long term (current) use of insulin; K66.0 Peritoneal adhesions (postprocedural) (postinfection); Z98.890 Other specified postprocedural states; I10 Essential (primary) hypertension; G47.33 Obstructive sleep apnea (adult) (pediatric); E66.9 Obesity, unspecified; Z68.37 Body mass index [BMI] 37.0-37.9, adult

== ENCOUNTER 2017-01-23 15:44 | Emergency (ER) | payer OTHER ==
[~2017-01-23 15:44] MED LIST: NORCO1 TA1 PO
--- NOTE | 2017-01-23 17:29 | DIAGNOSTIC IMAGING REPORT ---
PROCEDURE: CT ABD/PELVIS WITH CONTRAST CLINICAL INDICATION: RLQ PAIN. S/P APPY 5 D AGO TECHNIQUE: 125 ml of Isovue 300 were injected intravenously and axial images were obtained of the entire abdomen and pelvis with sagittal and coronal reformations. COMPARISON: CT abdomen/pelvis 01/18/2017. FINDINGS: ABDOMEN: Minor bibasilar scarring. Heart size is normal. Hepatic steatosis. Gallbladder, pancreas, spleen, adrenal glands and kidneys are unremarkable. Minor atherosclerosis. PELVIS: Right lower quadrant postsurgical changes consistent with a recent appendectomy. Minor stranding of the right lower quadrant subcutaneous fat consistent with a trocar insertion. Midline ventral hernia repair with mesh. The uterus, adnexa and bladder are normal. No free fluid or inflammatory changes. L4-5 degenerative changes. IMPRESSION: 1. Right lower quadrant postsurgical changes consistent with recent appendectomy. No evidence of an abscess. 2. Midline abdominal herniorrhaphy with mesh 3. Hepatic steatosis 4. Results discussed with Dr. Aguirre All CT scans at this facility use dose modulation, iterative reconstruction, and/or weight-based dosing when appropriate to reduce radiation dose to as low as reasonably achievable.
--- NOTE | 2017-01-23 17:55 | ED NURSING NOTES ---
Clinical Report - Nurses [facility] [address] [place] [address] 01/23/2017 15:45 Patient: MINNIE ROBERTS TRIAGE Triage time 15:48. Acuity: LEVEL 3. Chief Complaint: ABDOMINAL PAIN. 15:49 01/23/17. 15:49 01/23/17. Alert. ( 5 days ago pt had an appendectomy. Pt had surgery here and has been in pain ever since her DC.). SEPSIS SCREEN: Sepsis Screen: negative. Negative (no infection suspected/documented). Heart rate greater than 90. --15:54 Bob Soares R.N. 15:50 01/23/17. BP: 127/74. HR: 105. RR: 18. O2 saturation: 98% on room air. Temp: 98.8 F (oral). Pain level now: 02/26. --15:54 Bob Soares R.N. Weight: 109.3 kg stated. Height/Length: 67 inches Per Patient. BMI: 37.8. --15:53 Bob Soares R.N. Medications Flexeril 10mg, as needed. Gabapentin Oral 300mg, at bedtime. Glucosamine Complex Oral 4mg. Hydrochlorothiazide Oral 25 mg, daily. Lantus Subcutaneous 30 units, every PM. Lisinopril Oral 20 mg, 2x a day. Nortriptyline HCl Oral (2 tabs). Omeprazole Oral 40 mg. Pioglitazone HCl Oral 30 mg. Simvastatin Oral 20 mg. Tradjenta Oral (Tablet 5 mg) 1 tablet, daily. Zoloft Oral 54mg, daily. --15:54 Bob Soares R.N. Medication/allergy information source: the patient. --15:54 Bob Soares R.N. Allergies Morphine and Related. (Facial Itching) --15:54 Bob Soares R.N. History Arrived by private vehicle. Historian: patient. Accompanied by family. Primary physician (SABINO KING). 15:49 06/06/17. ( 5 days ago). ( BM x4 today). 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 PAST MEDICAL HX: Immunizations: up-to-date. The patient is post-menopausal. SOCIAL HX: Never smoker. FALL RISK ASSESSMENT: Fall risk assessment completed. No fall risk identified. NUTRITIONAL RISK ASSESSMENT: The nutritional risk assessment revealed no deficiencies. FUNCTIONAL ASSESSMENT: Functional assessment: no impairments noted. LEARNING NEEDS ASSESSMENT: The learning needs assessment revealed no barriers. SKIN INTEGRITY ASSESSMENT: Skin integrity risk assessment completed. No skin integrity risk identified. --15:54 Bob Soares R.N. The patient has had nausea. No vomiting. --15:55 Bob Soares R.N. PROBLEMS: Hypertension. Contusion. Sprain. Fall. Fibromyalgia. Costochondritis. UTI - Urinary Tract Infection. Diabetes Mellitus. Lung Disease. LNMP - Last Normal Menstrual Period. Immunizations. --15:54 Bob Soares R.N. ADDITIONAL SURGERIES: . Inguinal Hernia Repair. Umbilical Hernia Repair. --15:54 Bob Soares R.N. Appendectomy []. --15:56 Bob Soares R.N. Assessment 15:49 01/23/17. --15:54 Bob Soares R.N. Interventions 15:49 01/23/17. 15:49 01/23/17. ID and allergy band on patient. To treatment room. --15:54 Bob Soares R.N. PHYSICAL ASSESSMENT 15:52 01/23/17. Ambulatory to room. GENERAL / NEURO / PSYCH: Alert. Oriented X 4. Appears in pain. RESPIRATORY: Respirations not labored. CVS: Capillary refill less than 2 seconds. GI / : Abdominal tenderness in the right lower quadrant. SKIN: Skin is warm and dry. --15:52 Bob Soares R.N. NURSING PROGRESS NOTES 15:52 01/23/17. Two patient identifiers checked. Call light placed in reach. Side rails up x 2. Bed placed in lowest position. Brakes of bed on. Patient ready for evaluation- chart flagged and notification provided. --15:52 Bob Soares R.N. 15:52 01/23/17. The plan of care for this patient has been created. Patient gowned. Head of bed elevated. Reassurance given. --15:52 Bob Soares R.N. 15:55 01/23/17. Patient ID band checked for patient name and birthdate: patient confirmed. Instructions provided to collect clean catch urine and patient verbalized understanding. Clean catch urine collected; sample sent to lab for urinalysis and culture. Specimen labeled in the presence of the patient. --15:55 Bob Soares R.N. 16:17 01/23/2017 Site #1 started via IV in the right forearm with an 20g angiocath; two attempts. Blood drawn: rainbow set. Labeled in the presence of the patient and sent to the lab. --16:17 Bob Soares R.N. 16:17 01/23/2017 Started bag #1 1000 mL IV Fluids IV NS (Saline); at 1000 mL/hr over 1 hour(s) via site #1. Allergies verified and confirmed 5 rights. IV patency established. IV site checked: no pain, redness, or swelling. IV flushed thoroughly pre- and post-medication administration. Completed per protocol. --16:17 Bob Soares R.N. 16:17 01/23/2017 Zofran (Ondansetron HCl) IVP 4 mg given over 2 minute(s) via site #1. Allergies verified and confirmed 5 rights. IV patency established. IV site checked: no pain, redness, or swelling. IV flushed thoroughly pre- and post-medication administration. IVP given by RN. --16:17 Bob Soares R.N. 16:18 01/23/2017 Dilaudid (HYDROmorphone HCl PF) IVP 1 mg given over 3 minute(s) via site #1. Allergies verified, confirmed 5 rights and sedative warning given to the patient. IV patency established. IV site checked: no pain, redness, or swelling. IV flushed thoroughly pre- and post-medication administration. IVP given by RN. --16:18 Bob Soares R.N. 16:18 01/23/17. Pulse oximeter placed on patient. --16:18 Bob Soares R.N. 16:19 01/23/17. --16:19 Bob Soares R.N. 16:19 01/23/17. BP: 113/72. HR: 101. RR: 14. O2 saturation: 99% on room air. --16:19 Bob Soares R.N. 16:19 01/23/17. HR: 95 (regular). --16:20 Bob Soares R.N. 16:20 01/23/17. --16:20 Bob Soares R.N. 16:23 01/23/17. Reassessment after medication administered. She has had no adverse reaction. Overall patient status is improved- she states feels better. ( 4/10 pain and pain is resolving after IV pain meds). --16:23 Bob Soares R.N. 16:57 01/23/17. BP: 124/76. HR: 95. RR: 15. O2 saturation: 98% on room air. Pain level now: 12/27. --16:57 Bob Soares R.N. 16:57 01/23/17. --16:57 Bob Soares R.N. 17:15 01/23/2017 IV Fluids IV NS Discontinued: bag #1 infused. Total amount infused: 1000 mL. IV patency established. IV site checked: no pain, redness, or swelling. IV flushed thoroughly. --17:15 Bob Soares R.N. 17:36 01/23/17. --17:36 Bob Soares R.N. 17:35 01/23/17. BP: 116/60. HR: 92. RR: 14. O2 saturation: 98% on room air. Temp: 98.1 F (oral). Pain level now: 12/27. --17:36 Bob Soares R.N. DISPOSITION / DISCHARGE 18:01/23/2017 Site #1 removed upon discharge. Catheter intact. --18:09 Bob Soares R.N. 18:01/23/17. Condition at departure: improved. The goals identified in the patient's plan of care were met. No learning barriers present. Discharge instructions provided and reviewed with the patient. Reviewed warnings. Reviewed medication(s). Treatments reviewed. Reviewed referrals (will follow up with surgeon tomorrow). Patient and category specialist verbalized understanding. Written instructions provided in Albanian. The patient was discharged by the physician. She was discharged home and accompanied by family. She left the Emergency Department ambulatory and via private vehicle. Family member driving. FALL RISK ASSESSMENT: Fall risk assessment completed. No fall risk identified. --18:10 Bob Soares R.N. 18:08 01/23/17. BP: 121/71. HR: 90. RR: 16. O2 saturation: 99% on room air. Temp: 98.2 F (oral). --18:10 Bob Soares R.N. 18:10 01/23/17. Departure time: 18:10. --18:10 Bob Soares R.N. Locked/Released at 01/23/2017 18:11 by Bob Soares R.N.
--- NOTE | 2017-01-23 17:55 | ED ORDER SUMMARY ---
..... Patient: MINNIE ROBERTS OrderSheet [facility] VisitID: [id number] [place] [address] 56y, F Registration Date/Time: 01/23/2017 ORDER SHEET Weight: 109.3 kg (stated) Allergies: Morphine and Related GENERAL ORDERS: UA-Culture if indicated Urgent (15:55 01/23/2017 JBoardley R.N. per protocol) (Ack 15:56 PWeiler ER Tech1) (16:09 MWinterer R.N.) CT Abd/Pel w Cont (No) (N/A) Urgent (16:02 01/23/2017 Danilo Stephenson) (Ack 16:08 PWeiler ER Tech1) (17:14 JBoardley R.N.) okay per hx CBC w Diff Urgent (16:03 01/23/2017 Danilo Stephenson) (Ack 16:08 PWeiler ER Tech1) (16:13 JBoardley R.N.) okay per hx CMP Urgent (16:03 01/23/2017 Danilo Stephenson) (Ack 16:08 PWeiler ER Tech1) (16:13 JBoardley R.N.) okay per hx UA-Culture if indicated Urgent (16:03 01/23/2017 Danilo Stephenson) (Ack 16:08 PWeiler ER Tech1) (16:09 MWinterer R.N.) okay per hx PT with INR Urgent (16:03 01/23/2017Joana Carrasco Dr.) (Ack 16:08 PWeiler ER Tech1) (16:13 JBoardley R.N.) okay per hx Lipase Urgent (16:03 01/23/2017 Danilo Stephenson) (Ack 16:08 PWeiler ER Tech1) (16:13 JBoardley R.N.) okay per hx Pulse oximeter (16:03 01/23/2017 Danilo Stephenson) (16:13 MARLONoardlecolleen R.N.) okay per hx MEDICATION ORDERS: IV FLUIDS: IV NS : initial bolus 1000 mL (1000 mL/hr), then none - for X1 (NOW) (16:03 01/23/2017 Danilo Stephenson) (Ack 16:04 JBoardley R.N.) (16:17 JBoardley R.N.) okay per hx Dilaudid IV 1 mg (HIGH ALERT MEDICATION, NOW) (16:03 01/23/2017 Danilo Stephenson) (Ack 16:04 JBoardley R.N.) (16:18 JBoardley R.N.) okay per hx Zofran IV 4 mg (NOW) (16:03 01/23/2017 Danilo Stephenson) (Ack 16:04 JBoardley R.N.) (16:17 JBoardley R.N.) okay per hx ORDER SHEET NOTES: [Electronically signed by Bob Soares R.N. (18:11 01/23/2017)] [Electronically signed by Candido Aguirre Dr. (19:20 01/24/2017)] [Electronically locked/signed by Bob Soares R.N. (18:11 01/23/2017)]
--- NOTE | 2017-01-23 17:55 | ED CLINICAL REPORT ---
Clinical Report - Physicians/Mid Levels [facility] [address] [place] [place] [address] 01/23/2017 15:45 Patient: MINNIE ROBERTS Time Seen: 1555. Arrived- By private vehicle. Historian- patient. HISTORY OF PRESENT ILLNESS Chief Complaint: ABDOMINAL PAIN. This started past 2 days and is still present and worsening. It was gradual in onset and has been constant but is not gone now. At its maximum, severity described as severe. When seen in the E.D., severity described as severe. Modifying factors- worsened by movement. Relieved by rest. It is described as burning. No radiation. It is described as located in the right lower quadrant. The patient has had nausea. No loss of appetite, vomiting or diarrhea. No additional abdominal pain. (ecent surgery for appendectomy approximately 5-6 days ago per patient). No recent travel. Similar symptoms previously: None. Recent medical care: Not recently seen/assessed. REVIEW OF SYSTEMS No skin rash. All systems otherwise negative, except as recorded above. PAST HISTORY See nurses notes. Medications: Flexeril 10mg, as needed. Gabapentin Oral 300mg, at bedtime. Glucosamine Complex Oral 4mg. Hydrochlorothiazide Oral 25 mg, daily. Lantus Subcutaneous 30 units, every PM. Lisinopril Oral 20 mg, 2x a day. Nortriptyline HCl Oral (2 tabs). Omeprazole Oral 40 mg. Pioglitazone HCl Oral 30 mg. Simvastatin Oral 20 mg. Tradjenta Oral (Tablet 5 mg) 1 tablet, daily. Zoloft Oral 54mg, daily. Allergies: Morphine and Related. (Facial Itching). SOCIAL HISTORY Never smoker. No alcohol use or drug use. No recent travel. Is a local resident. ADDITIONAL NOTES The nursing notes have been reviewed. PHYSICAL EXAM Vital Signs: 01/23/2017 15:50 BP: 127/74. HR: 105. RR: 18. O2 saturation: 98%. Temp: 98.8 F. Pain level now: 7/10. Blood pressure normal. Oxygen saturation normal. Appearance: Alert. Oriented X3. No acute distress. (Nontoxic. polite. pleasant Cooperative.). Eyes: Pupils equal, round and reactive to light. Eyes normal inspection. No pale conjunctivae. ENT: Ears normal. Nose normal. Pharynx normal. Neck: Normal inspection. Neck supple. CVS: Normal heart rate and rhythm. Heart sounds normal. Pulses normal. Respiratory: No respiratory distress. Breath sounds normal. Chest nontender. No rales, rhonchi or wheezes. Abdomen: Soft and nontender. Bowel sounds normal. Skin: Skin warm and dry. Normal skin color. No rash. Normal skin turgor. Extremities: Extremities exhibit normal ROM. No lower extremity edema. LABS, X-RAYS, AND EKG Abdominal CT: PROCEDURE: CT ABD/PELVIS WITH CONTRAST CLINICAL INDICATION: RLQ PAIN. S/P APPY 5 D AGO TECHNIQUE: 125 ml of Isovue 300 were injected intravenously and axial images were obtained of the entire abdomen and pelvis with sagittal and coronal reformations. COMPARISON: CT abdomen/pelvis 01/18/2017. FINDINGS: ABDOMEN: Minor bibasilar scarring. Heart size is normal. Hepatic steatosis. Gallbladder, pancreas, spleen, adrenal glands and kidneys are unremarkable. Minor atherosclerosis. PELVIS: Right lower quadrant postsurgical changes consistent with a recent appendectomy. Minor stranding of the right lower quadrant subcutaneous fat consistent with a trocar insertion. Midline ventral hernia repair with mesh. The uterus, adnexa and bladder are normal. No free fluid or inflammatory changes. L4-5 degenerative changes. IMPRESSION: 1. Right lower quadrant postsurgical changes consistent with recent appendectomy. No evidence of an abscess. 2. Midline abdominal herniorrhaphy with mesh 3. Hepatic steatosis. The study was independently viewed by me and interpreted by the radiologist. The study was discussed with the radiologist (via pacs). Laboratory Tests: UA-Culture if indicated: (GIULIANA: 01/23/2017 15:50) ( MsgRcvd 01/23/2017 16:15) Final results Test Result Flag Units (Reference) URINE COLOR YELLOW URINE APPEARANCE CLEAR URINE GLUCOSE 3+ (NEGATIVE) URINE BILIRUBIN NEGATIVE (NEGATIVE) URINE KETONE NEGATIVE (NEGATIVE) URINE SPECIFIC GRAVITY 1.020 (1.010-1.030) URINE PH 5.5 (5.0-8.0) URINE PROTEIN NEGATIVE (NEGATIVE) URINE UROBILINOGEN 0.2 EU/dL (0.2-1.0) URINE NITRITE NEGATIVE (NEGATIVE) URINE BLOOD NEGATIVE (NEGATIVE) URINE LEUK ESTERASE NEGATIVE (NEGATIVE) URINE RBC NONE SEEN rbc/hpf (0-1) URINE WBC 0-1 wbc/hpf (0-1) URINE EPITHELIAL CELLS 1-3 EPI/hpf (0-5) URINE BACTERIA TRACE (<1+) (NONE SEEN) URINE COMMENT CULT NOT INDICATED URINE CULTURES ARE SET-UP BASED ON THE FOLLOWING CRITERIA:POSITIVE NITRITEPOSITIVE LEUKOCYTE ESTERASEGREATER THAN 10 WHITE BLOOD CELLSMODERATE (2+) OR GREATER BACTERIA CBC w Diff: (GIULIANA: 01/23/2017 16:05) ( MsgRcvd 01/23/2017 16:29) Final results Test Result Flag Units (Reference) WHITE BLOOD COUNT 11.6 H K/uL (4.5-11.5) RED BLOOD COUNT 4.38 M/uL (4.00-5.20) HEMOGLOBIN 12.8 gm/dL (12.0-16.0) HEMATOCRIT 38.5 % (36.0-46.0) MEAN CELL VOLUME 88 fL (80-100) MEAN CORPUSCULAR HGB 29 pg (26-34) MEAN CORPUSCULAR HGB CONC 33 g/dL (31-37) RED CELL DISTRIBUTION WIDTH 13.8 % (11.6-14.8) PLATELET COUNT 374 K/uL (150-400) NEUTROPHIL % 58.6 % (50-75) LYMPH % 35.1 % (25-40) MONO % 3.2 % (3-14) EOSINOPHIL % 2.7 % (0-4) BASOPHIL % 0.4 % (0-2) PT with INR: (GIULIANA: 01/23/2017 16:05) ( MsgRcvd 01/23/2017 16:29) Final results Test Result Flag Units (Reference) INR 0.9 (0.8-1.2) Low Intensity Therapy: INR 1.5-2.0 PT range 18.5-23.1Mod.Intensity Therapy: INR 2.0-3.0 PT range 23.1-31.5High Intensity Therapy: INR 2.5-3.5 PT range 27.4-35.5High Intensity Therapy 2: INR 3.0-4.0 PT range 31.5-39.3 CMP: (GIULIANA: 01/23/2017 16:05) ( MsgRcvd 01/23/2017 16:45) Final results Test Result Flag Units (Reference) GLUCOSE 346 H mg/dL (70-110) BUN 11 mg/dL (7-18) CREATININE 0.7 mg/dL (0.6-1.3) Estimated GFR >60 mL/min Estimated GFR- >60 mL/min Note: Persistent reduction over 3 months in eGFR<60 mL/min/1.73 m2 defines CKD. Patients with eGFR values>=60 mL/min/1.73 m2 may also have CKD if evidence ofpersistent proteinuria. Additional information may be foundat www.kidney.org. SODIUM 137 mmol/L (136-145) POTASSIUM 3.7 mmol/L (3.5-5.1) CHLORIDE 99 mmol/L (98-107) CARBON DIOXIDE 28 mmol/L (21-32) CALCIUM 9.1 mg/dL (8.5-10.1) TOTAL PROTEIN 7.3 g/dL (6.4-8.2) ALBUMIN 3.1 L g/dL (3.3-5.0) BILIRUBIN, TOTAL 0.2 mg/dL (0.0-1.0) ALKALINE PHOSPHATASE 94 U/L (46-116) AST (SGOT) 19 U/L (15-37) ALT (SGPT) 31 U/L (12-78) LIPASE 66 L U/L (73-393) . PROGRESS AND PROCEDURES Course of Care: the patient is a 56-year-old female with recent appendectomy presenting for a vaginal right lower quant abdominal pain. The patient appears nontoxic. Vital signs are unremarkable. Patient will be evaluated for complications following a appenectomy including intraperitoneal abscess. Wounds appear clean dry and intact. No signs of overlying cellulitis. Patient is agreeable to the treatment and plan. Pain medication has been offered. The patient's laboratory studies and CT scan did not show any signs of acute infection. CT scan does not show any signs of fluid collection in the area particularly in the right lower quadrant which is where the patient is having her discomfort. After discussing the patient's findings here in the emergency department, patient was relieved for any concerns for complications after surgery. Had discussion with the patient in regards to her surgery and the likelihood that she hadpersistent pain following her surgery. Reassurance provided. Recommended patient follow up with her primary care doctor and schedule follow up with her general surgeon. Return precautions are provided. Discussed the patient workup here in the emergency department including diagnosis, home care, and follow-up. All questions have been answered. The patient expressed understanding of these instructions and was agreeable to them. Prior to discharge, patient's repeat abdominal exam continues to be reassuring. Patient without signs of surgical abdomen or peritonitis. Patient is nontoxic in continues to be afebrile. Patient is a stable outpatient candidate. Do not feel patient needs to be admitted to the hospital require further emergency department workup/evaluation given her negative workup here in emergency department. Patient is able to tolerate by mouth. Disposition: Discharged. Condition: good. CLINICAL IMPRESSION Acute right lower quadrant abdominal pain. 01/23/2017 17:35 BP: 116/60. HR: 92. RR: 14. O2 saturation: 98%. Temp: 98.1 F. Pain level now: 5/10. Blood pressure normal. Oxygen saturation normal. wound recheck, s/p appendectomy. INSTRUCTIONS Warnings: GENERAL WARNINGS: Return or contact your physician immediately if your condition worsens or changes unexpectedly, if not improving as expected, or if other problems arise. SPECIFICALLY, return if you develop pain in the abdomen, fever, vomiting, the inability to keep fluids down, blood in vomitus, blood in diarrhea, fainting or lightheadedness. Your Current Medications: CONTINUE TAKING THE FOLLOWING MEDICATIONS: Flexeril* : 10mg, prn. Gabapentin Oral : 300mg at bedtime. Glucosamine Complex Oral : 4mg. Hydrochlorothiazide Oral : 25 mg daily. Lantus Subcutaneous : 30 units every PM. Lisinopril Oral : 20 mg 2x a day. Nortriptyline HCl Oral : 2 tabs. Omeprazole Oral : 40 mg. Pioglitazone HCl Oral : 30 mg. Simvastatin Oral : 20 mg. Tradjenta Oral : Tablet 5 mg, 1 tablet daily. Zoloft Oral : 54mg daily. Prescription Medications: [place] 5 mg / 325 mg tablets: take 1 orally every 6 hours as needed for pain. Dispense twenty (20). No refill. Substitution is permissible. Follow-up: Return to the emergency department as needed. Follow up with your doctor in three days. Reason for referral: recheck today's concerns. Summary of care provided to patient via paper. Follow up with doctor in three days. Reason for referral: Your surgeon for recheck of today's concerns. Summary of care provided to patient via paper. Screening today revealed the patient's blood pressure to be in the normal range. The patient should follow up with a primary care provider for blood pressure management. Understanding of the discharge instructions verbalized by patient. (Electronically signed by Candido Aguirre Dr. 01/24/2017 19:20)
--- NOTE | 2017-01-23 17:55 | ED ORDER SUMMARY ---
..... Patient: MINNIE ROBERTS OrderSheet [facility] VisitID: [id number] [place] [address] 56y, F Registration Date/Time: 01/23/2017 ORDER SHEET Weight: 109.3 kg (stated) Allergies: Morphine and Related GENERAL ORDERS: UA-Culture if indicated Urgent (15:55 01/23/2017 JBoardley R.N. per protocol) (Ack 15:56 PWeiler ER Tech1) (16:09 MWinterer R.N.) CT Abd/Pel w Cont (No) (N/A) Urgent (16:02 01/23/2017 Danilo Stephenson) (Ack 16:08 PWeiler ER Tech1) (17:14 JBoardley R.N.) okay per hx CBC w Diff Urgent (16:03 01/23/2017 Danilo Stephenson) (Ack 16:08 PWeiler ER Tech1) (16:13 JBoardley R.N.) okay per hx CMP Urgent (16:03 01/23/2017 Danilo Stephenson) (Ack 16:08 PWeiler ER Tech1) (16:13 JBoardley R.N.) okay per hx UA-Culture if indicated Urgent (16:03 01/23/2017 Danilo Stephenson) (Ack 16:08 PWeiler ER Tech1) (16:09 MWinterer R.N.) okay per hx PT with INR Urgent (16:03 01/23/2017Joana Carrasco Dr.) (Ack 16:08 PWeiler ER Tech1) (16:13 JBoardley R.N.) okay per hx Lipase Urgent (16:03 01/23/2017 Danilo Stephenson) (Ack 16:08 PWeiler ER Tech1) (16:13 JBoardley R.N.) okay per hx Pulse oximeter (16:03 01/23/2017 Danilo Stephenson) (16:13 MARLONoardlecolleen R.N.) okay per hx MEDICATION ORDERS: IV FLUIDS: IV NS : initial bolus 1000 mL (1000 mL/hr), then none - for X1 (NOW) (16:03 01/23/2017 Danilo Stephenson) (Ack 16:04 JBoardley R.N.) (16:17 JBoardley R.N.) okay per hx Dilaudid IV 1 mg (HIGH ALERT MEDICATION, NOW) (16:03 01/23/2017 Danilo Stephenson) (Ack 16:04 JBoardley R.N.) (16:18 JBoardley R.N.) okay per hx Zofran IV 4 mg (NOW) (16:03 01/23/2017 Danilo Stephenson) (Ack 16:04 JBoardley R.N.) (16:17 JBoardley R.N.) okay per hx ORDER SHEET NOTES: [Electronically signed by Bob Soares R.N. (18:11 01/23/2017)] [Electronically signed by Candido Aguirre Dr. (19:20 01/24/2017)] [Electronically locked/signed by Bob Soares R.N. (18:11 01/23/2017)]
--- NOTE | 2017-01-24 19:20 | ED MED RECONCILIATION SUMMARY ---
Patient: MINNIE ROBERTS Medication Reconciliation Report [facility] VisitID: [id number] [address] [place] [address] 56y, F Registration Date/Time: 01/23/2017 Weight: 109.3 kg Height/Length: 67 in. BMI: 37.8 ALLERGIES: Morphine and Related The patient's Home Medications are listed below: CONTINUE TAKING THE FOLLOWING MEDICATIONS: Flexeril 10mg Gabapentin Oral 300mg, at bedtime Glucosamine Complex Oral 4mg Hydrochlorothiazide Oral 25 mg, daily Lantus Subcutaneous 30 units, every PM Lisinopril Oral 20 mg, 2x a day Nortriptyline HCl Oral, 2 tabs Omeprazole Oral 40 mg Pioglitazone HCl Oral 30 mg Simvastatin Oral 20 mg Tradjenta Oral (5 mg) 1 tablet, daily Zoloft Oral 54mg, daily The source(s) of the original Home Medication information: patient The following Medications were given to the patient in the Emergency Department: IV NS IV Fluids bolus 0, then 1000 mL/hr, administered: 01/23/2017 4:17:00 PM Zofran [IVP] IVP 4 mg, administered: 01/23/2017 4:17:00 PM Dilaudid [IVP] IVP 1 mg, administered: 01/23/2017 4:18:00 PM The following Medications were prescribed to the patient: [place] 5 mg / 325 mg tablets: take 1 orally every 6 hours as needed for pain. Dispense twenty (20). No refill. Substitution is permissible. -- Candido Aguirre Dr.
--- NOTE | 2017-01-24 19:20 | ED MAR SUMMARY ---
..... Medication Administration Record [facility] [address] [place] [address] Patient: MINNIE ROBERTS Visit ID: [id number] 56y, F Weight: 109.3 kg Height/Length: 67 in BMI: 37.8 ALLERGIES: Morphine and Related Start 16:17 01/23/2017 Bob Soares R.N., Stop 17:15 01/23/2017 Bob Soares R.N. Medication Administered: IV NS (SALINE), Dose: IV Fluids over 1 hour(s), Rate: 1000 mL/hr, Dispensed: 1000 mL bag, Site: #1 right forearm. Medication Ordered: IV NS : initial bolus 1000 mL (1000 mL/hr), then none - for X1 (NOW). Given 16:17 01/23/2017 Bob Soares R.N. Medication Administered: ZOFRAN [IVP] (ONDANSETRON HCL), Dose: 4 mg IVP over 2 minute(s), Site: #1 right forearm. Medication Ordered: Zofran IV 4 mg (NOW). Given 16:18 01/23/2017 Bob Soares R.N. Medication Administered: DILAUDID [IVP] (HYDROMORPHONE HCL PF), Dose: 1 mg IVP over 3 minute(s), Site: #1 right forearm. Medication Ordered: Dilaudid IV 1 mg (HIGH ALERT MEDICATION, NOW).
--- NOTE | 2017-01-24 19:20 | ED MAR SUMMARY ---
..... Medication Administration Record [facility] [address] [place] [address] Patient: MINNIE ROBERTS Visit ID: [id number] 56y, F Weight: 109.3 kg Height/Length: 67 in BMI: 37.8 ALLERGIES: Morphine and Related Start 16:17 01/23/2017 Bob Soares R.N., Stop 17:15 01/23/2017 Bob Soares R.N. Medication Administered: IV NS (SALINE), Dose: IV Fluids over 1 hour(s), Rate: 1000 mL/hr, Dispensed: 1000 mL bag, Site: #1 right forearm. Medication Ordered: IV NS : initial bolus 1000 mL (1000 mL/hr), then none - for X1 (NOW). Given 16:17 01/23/2017 Bob Soares R.N. Medication Administered: ZOFRAN [IVP] (ONDANSETRON HCL), Dose: 4 mg IVP over 2 minute(s), Site: #1 right forearm. Medication Ordered: Zofran IV 4 mg (NOW). Given 16:18 01/23/2017 Bob Soraes R.N. Medication Administered: DILAUDID [IVP] (HYDROMORPHONE HCL PF), Dose: 1 mg IVP over 3 minute(s), Site: #1 right forearm. Medication Ordered: Dilaudid IV 1 mg (HIGH ALERT MEDICATION, NOW).
--- NOTE | 2017-01-24 19:20 | ED MED RECONCILIATION SUMMARY ---
Patient: MINNIE ROBERTS Medication Reconciliation Report [facility] VisitID: [id number] [address] [place] [address] 56y, F Registration Date/Time: 01/23/2017 Weight: 109.3 kg Height/Length: 67 in. BMI: 37.8 ALLERGIES: Morphine and Related The patient's Home Medications are listed below: CONTINUE TAKING THE FOLLOWING MEDICATIONS: Flexeril 10mg Gabapentin Oral 300mg, at bedtime Glucosamine Complex Oral 4mg Hydrochlorothiazide Oral 25 mg, daily Lantus Subcutaneous 30 units, every PM Lisinopril Oral 20 mg, 2x a day Nortriptyline HCl Oral, 2 tabs Omeprazole Oral 40 mg Pioglitazone HCl Oral 30 mg Simvastatin Oral 20 mg Tradjenta Oral (5 mg) 1 tablet, daily Zoloft Oral 54mg, daily The source(s) of the original Home Medication information: patient The following Medications were given to the patient in the Emergency Department: IV NS IV Fluids bolus 0, then 1000 mL/hr, administered: 01/23/2017 4:17:00 PM Zofran [IVP] IVP 4 mg, administered: 01/23/2017 4:17:00 PM Dilaudid [IVP] IVP 1 mg, administered: 01/23/2017 4:18:00 PM The following Medications were prescribed to the patient: [place] 5 mg / 325 mg tablets: take 1 orally every 6 hours as needed for pain. Dispense twenty (20). No refill. Substitution is permissible. -- Candido Aguirre Dr.
--- NOTE | 2017-01-24 19:20 | ED DISCHARGE INSTRUCTIONS ---
Patient: MINNIE ROBERTS General Instructions [facility] VisitID: [id number] [place] [address] 56y, F Registration Date/Time: 01/23/2017 Acute right lower quadrant abdominal pain. 01/23/2017 17:35 BP: 116/60. HR: 92. RR: 14. O2 saturation: 98%. Temp: 98.1 F. Pain level now: 5/10. Blood pressure normal. Oxygen saturation normal. wound recheck, s/p appendectomy. INSTRUCTIONS Warnings: GENERAL WARNINGS: Return or contact your physician immediately if your condition worsens or changes unexpectedly, if not improving as expected, or if other problems arise. SPECIFICALLY, return if you develop pain in the abdomen, fever, vomiting, the inability to keep fluids down, blood in vomitus, blood in diarrhea, fainting or lightheadedness. Your Current Medications: CONTINUE TAKING THE FOLLOWING MEDICATIONS: Flexeril* : 10mg, prn. Gabapentin Oral : 300mg at bedtime. Glucosamine Complex Oral : 4mg. Hydrochlorothiazide Oral : 25 mg daily. Lantus Subcutaneous : 30 units every PM. Lisinopril Oral : 20 mg 2x a day. Nortriptyline HCl Oral : 2 tabs. Omeprazole Oral : 40 mg. Pioglitazone HCl Oral : 30 mg. Simvastatin Oral : 20 mg. Tradjenta Oral : Tablet 5 mg, 1 tablet daily. Zoloft Oral : 54mg daily. Prescription Medications: [place] 5 mg / 325 mg tablets: take 1 orally every 6 hours as needed for pain. Dispense twenty (20). No refill. Substitution is permissible. Follow-up: Return to the emergency department as needed. Follow up with your doctor in three days. Reason for referral: recheck today's concerns. Summary of care provided to patient via paper. Follow up with doctor in three days. Reason for referral: Your surgeon for recheck of today's concerns. Summary of care provided to patient via paper. Screening today revealed the patient's blood pressure to be in the normal range. The patient should follow up with a primary care provider for blood pressure management. Understanding of the discharge instructions verbalized by patient. ADDITIONAL INFORMATION Abdominal Pain, Unknown Cause (Female) The exact cause of your abdominal (stomach) pain is not certain. This does not mean that this is something to worry about, or the right tests were not done. Everyone likes to know the exact cause of the problem, but sometimes with abdominal pain, there is no clear-cut cause, and this could be a good thing. The good news is that your symptoms can be treated, and you will feel better. Your condition does not seem serious now; however, sometimes the signs of a serious problem may take more time to appear. For this reason,it is important for you to watch for any new symptoms, problems,or worsening of your condition. Over the next few days, the abdominal pain may come and go, or be continuous. Other common symptoms can include nausea and vomiting. Sometimes it can be difficult to tell if you feel nauseous, you may just feel bad and not associate that feeling with nausea. Constipation, diarrhea, and a fever may go along with the pain. The pain may continue even if treated correctly over the following days. Depending on how things go, sometimes the cause can become clear and may require further or different treatment. Additional evaluations, medications, or tests may be needed. Home care Your health care provider may prescribe medications for pain, symptoms, or an infection. Follow the health care provider's instructions for taking these medications. General care Rest until your next exam. No strenuous activities. Try to find positions that ease discomfort. A small pillow placed on the abdomen may help relieve pain. Something warm on your abdomen (such as a heating pad) may help, but be careful not to burn yourself. Diet Do not force yourself to eat, especially if having cramps, vomiting, or diarrhea. Water is important so you do not get dehydrated. Soup may also be good. Sports drinks may also help, especially if they are not too acidic. Make sure you don't drink sugary drinks as this can make things worse. Take liquids in small amounts. Do not guzzle them. Caffeine sometimes makes the pain and cramping worse. Avoid dairy products if you have vomiting or diarrhea. Don't eat large amounts at a time. Wait a few minutes between bites. Eat a diet low in fiber (called a low-residue diet). Foods allowed include refined breads, white rice, fruit and vegetable juices without pulp, tender meats. These foods will pass more easily through the intestine. Avoid whole-grain foods, whole fruits and vegetables, meats, seeds and nuts, fried or fatty foods, dairy, alcohol and spicy foods until your symptoms go away. Follow-up care Follow up with your health care provider as instructed, or if your pain does not begin to improve in the next 24 hours. When to seek medical care Seek prompt medical care if any of the following occur: Pain gets worse or moves to the right lower abdomen New or worsening vomiting or diarrhea Swelling of the abdomen Unable to pass stool for more than three days Fever of 100.4F (38C) or higher, or as directed by your healthcare provider. Blood in vomit or bowel movements (dark red or black color) Jaundice (yellow color of eyes and skin) Weakness, dizziness Chest, arm, back, neck or jaw pain Unexpected vaginal bleeding or missed period Call 911 Call emergency services if any of the following occur: Trouble breathing Confusion Fainting or loss of consciousness Rapid heart rate Seizure Hydrocodone Bitartrate, Acetaminophen Oral tablet What is this medicine? ACETAMINOPHEN; HYDROCODONE (a set a ALISTAIR aldo fen; gregg droe KOE done) is a pain reliever. It is used to treat mild to moderate pain. How should I use this medicine? Take this medicine by mouth. Swallow it with a full glass of water. Follow the directions on the prescription label. If the medicine upsets your stomach, take the medicine with food or milk. Do not take more than you are told to take. Talk to your chef & owner regarding the use of this medicine in children. This medicine is not approved for use in children. What side effects may I notice from receiving this medicine? Side effects that you should report to your doctor or health career development associate as soon as possible: allergic reactions like skin rash, itching or hives, swelling of the face, lips, or tongue breathing problems confusion feeling faint or lightheaded, falls stomach pain yellowing of the eyes or skin Side effects that usually do not require medical attention (report to your doctor or health career development associate if they continue or are bothersome): nausea, vomiting stomach upset What may interact with this medicine? alcohol antihistamines isoniazid medicines for depression, anxiety, or psychotic disturbances medicines for sleep muscle relaxants naltrexone narcotic medicines (opiates) for pain phenobarbital ritonavir tramadol What if I miss a dose? If you miss a dose, take it as soon as you can. If it is almost time for your next dose, take only that dose. Do not take double or extra doses. Where should I keep my medicine? Keep out of the reach of children. This medicine can be abused. Keep your medicine in a safe place to protect it from theft. Do not share this medicine with anyone. Selling or giving away this medicine is dangerous and against the law. Store at room temperature between 15 and 30 degrees C (59 and 86 degrees F). Protect from light. Keep container tightly closed. Throw away any unused medicine after the expiration date. Discard unused medicine and used packaging carefully. Pets and children can be harmed if they find used or lost packages. What should I tell my health care provider before I take this medicine? They need to know if you have any of these conditions: brain tumor Crohn's disease, inflammatory bowel disease, or ulcerative colitis drink more than 3 alcohol-containing drinks per day drug abuse or addiction head injury heart or circulation problems kidney disease or problems going to the bathroom liver disease lung disease, asthma, or breathing problems an unusual or allergic reaction to acetaminophen, hydrocodone, other opioid analgesics, other medicines, foods, dyes, or preservatives or trying to get breast-feeding What should I watch for while using this medicine? Tell your doctor or health career development associate if your pain does not go away, if it gets worse, or if you have new or a different type of pain. You may develop tolerance to the medicine. Tolerance means that you will need a higher dose of the medicine for pain relief. Tolerance is normal and is expected if you take the medicine for a long time. Do not suddenly stop taking your medicine because you may develop a severe reaction. Your body becomes used to the medicine. This does NOT mean you are addicted. Addiction is a behavior related to getting and using a drug for a non-medical reason. If you have pain, you have a medical reason to take pain medicine. Your doctor will tell you how much medicine to take. If your doctor wants you to stop the medicine, the dose will be slowly lowered over time to avoid any side effects. You may get drowsy or dizzy when you first start taking the medicine or change doses. Do not drive, use machinery, or do anything that may be dangerous until you know how the medicine affects you. Stand or sit up slowly. There are different types of narcotic medicines (opiates) for pain. If you take more than one type at the same time, you may have more side effects. Give your health care provider a list of all medicines you use. Your doctor will tell you how much medicine to take. Do not take more medicine than directed. Call emergency for help if you have problems breathing. The medicine will cause constipation. Try to have a bowel movement at least every 2 to 3 days. If you do not have a bowel movement for 3 days, call your doctor or health career development associate. Too much acetaminophen can be very dangerous. Do not take Tylenol (acetaminophen) or medicines that contain acetaminophen with this medicine. Many non-prescription medicines contain acetaminophen. Always read the labels carefully. You have been given the following additional information: Abdominal Pain, Unknown Cause, (Female) Hydrocodone Bitartrate, Acetaminophen Oral tablet (Electronically signed by Candido Aguirre Dr. 01/24/2017 19:20)
== END 2017-01-23 18:10 | disposition home or self-care (01) ==
LOC: ED SRH 15:44
DX: R10.31 Right lower quadrant pain (principal); Z98.890 Other specified postprocedural states; Z79.899 Other long term (current) drug therapy; Z79.4 Long term (current) use of insulin; Z88.5 Allergy status to narcotic agent
CPT/HCPCS: 90004; 90100; 92235; 94060; 95059